=== PATIENT | female | born 1970 | race Two or more races ===

== ENCOUNTER 2017-09-04 06:32 | Emergency (ER) | payer OTHER ==
[~2017-09-04] VITALS: Ht 157.5 cm; Wt 89.0 kg
[~2017-09-04 06:32] MED LIST: HYDR-762 PO; NAPR-685 PO; ONDA4TAB8 PO
[2017-09-04] MEDS ORDERED: KETOROLAC 30 MG INJ IV STA (06:40)
[2017-09-04] MEDS ORDERED: ONDANSETRON 4 MG INJ IV STA (06:40)
[2017-09-04] MEDS ORDERED: SOD CHLORIDE 0.9% 1,000 ML IV STA (06:40)
[2017-09-04 06:43] VITALS: Ht 157.5 cm; Wt 89.0 kg
[2017-09-04 07:25] LABS: BASOPHIL # 0.1 10^3/ul (0.0-0.1); BASOPHILS % 0.7 % (0.0-2.0); EOSINOPHILS # 0.1 10^3/ul (0.0-0.5); EOSINOPHILS % 1.6 % (0.0-7.0); HEMOGLOBIN 12.9 g/dl (12.0-16.0); LYMPHOCYTES # 1.8 10^3/ul (0.8-2.9); LYMPHOCYTES % 25.1 % (15.0-51.0); MEAN CORPUSCULAR HEMOGLOBIN 29.5 pg (29.0-33.0); MEAN CORPUSCULAR HGB CONC 33.1 g/dl (32.0-37.0); MEAN CORPUSCULAR VOLUME 89.2 fl (82.0-101.0); MEAN PLATELET VOLUME 11.2 fl (7.4-10.4); MONOCYTE # 0.5 10^3/ul (0.3-0.9); MONOCYTES % 7.1 % (0.0-11.0); NEUTROPHIL # 4.6 10^3/ul (1.6-7.5); NEUTROPHILS % 65.2 % (39.0-77.0); PLATELET COUNT 188 10^3/UL (140-415); RED BLOOD COUNT 4.37 10^6/ul (4.20-5.40); RED CELL DISTRIBUTION WIDTH 13.6 % (11.5-14.5)
[2017-09-04 07:48] LABS: ALBUMIN 3.7 g/dl (3.3-4.9); ALBUMIN/GLOBULIN RATIO 1.19; BILIRUBIN,INDIRECT 0.2 mg/dl (0-1.1); BILIRUBIN,TOTAL 0.2 mg/dl (0.2-1.3); CREATININE 0.69 mg/dl (0.44-1.00); TOTAL PROTEIN 6.8 g/dl (6.1-8.1)
[2017-09-04] MEDS ORDERED: DIAZEPAM 5 MG/ML SYG IV ONE (08:30)
[2017-09-04 09:18] LABS: ADD UMIC YES; UR ASCORBIC ACID NEGATIVE (NEGATIVE); UR BACTERIA FEW /HPF (NONE SEEN); UR BILIRUBIN (Dip) NEGATIVE (NEGATIVE); UR BLOOD (Dip) NEGATIVE (NEGATIVE); UR CLARITY CLEAR (CLEAR); UR COLOR STRAW (YELLOW); UR GLUCOSE (Dip) NEGATIVE (NEGATIVE); UR KETONES (Dip) TRACE mg/dL (NEGATIVE); UR LEUKOCYTE ESTERASE (Dip) 1+ Leu/ul (NEGATIVE); UR NITRITE (Dip) NEGATIVE (NEGATIVE); UR RBC 0 /HPF (0-5); UR SPECIFIC GRAVITY (Dip) 1.008 (1.003-1.030); UR TOTAL PROTEIN (Dip) NEGATIVE (NEGATIVE); UR UROBILINOGEN (Dip) NEGATIVE (NEGATIVE)
--- NOTE | 2017-09-04 09:27 | ERD ---
ER Documentation Chief Complaint Chief Complaint right flank pain with dizziness and nausea HPI This is a 47-year-old female who presents to the emergency room for evaluation of a right lower back pain. The patient states that she was feeling dizzy today and not called EMS. This patient does state that this back pain is worse when she stands up and when she walks. She does state that she was at the gym 2 days ago however she was worried because of the dizziness and called 911. When EMS arrived this to this patient was hypotensive with a systolic blood pressure of 85. This patient does have a history of low blood pressure, the patient denies any chest pain, shortness of breath, diaphoresis associated with any of her symptoms. She came to the ER for evaluation. ROS All systems reviewed and are negative except as per history of present illness. Medications Home Meds Active Scripts Ondansetron Hcl* (Zofran*) 4 Mg Tablet, 4 MG PO Q8H Y for NAUSEA AND/OR VOMITING , #30 TAB Prov:NICO FRENCH MD 07/18/15 Hydrocodone Bit-Acetaminophen* ([place]*) 10-325 Mg Tablet, 1 TAB PO Q6 Y for PAIN , #10 TAB Prov:NICO FRENCH MD 07/18/15 Naproxen* (Naproxen*) 375 Mg Tablet, 375 MG PO BID Y for PAIN, #14 TAB Prov:SUSIE VILLAFANA DO 07/18/15 Allergies Allergies: Coded Allergies: No Known Allergy (Unverified , 07/18/15) PMhx/Soc Medical and Surgical Hx: pt denies Medical Hx History of Surgery: Yes (APPY TONSILS) Hx Alcohol Use: No Hx Substance Use: No Hx Tobacco Use: No Smoking Status: Never smoker Physical Exam Vitals Vital Signs Date Time Temp Pulse Resp B/P Pulse Ox O2 Delivery O2 Flow Rate FiO2 09/04/17 09:00 67 20 101/62 98 Room Air 09/04/17 06:43 97.9 56 17 101/63 100 Physical Exam INITIAL VITAL SIGNS: Reviewed by me GENERAL: The patient is well developed and appropriate for usual state of health in no apparent distress HEENT: Pupils equal, round, and reactive to light. EOMI. There is no scleral icterus. NECK: C-spine is soft and supple, there is no meningismus. There is no cervical lymphadenopathy. LUNGS: Clear to auscultation bilaterally. There are no rales, wheezes or rhonchi. HEART: Regular rate and rhythm, no murmurs, clicks, rubs or gallops. ABDOMEN: Soft, non-tender, non-distended. There are bowel sounds in all four quadrants. No rebound or guarding. EXTREMITIES: There is no peripheral cyanosis or edema. No focal swelling or erythema. NEUROLOGICAL: The patient moves all four extremities with 5/5 strength. Cranial nerves II - XII are intact. Normal gait. Alert and oriented SKIN: There is no apparent rash or petechiae. Musculoskeletal: Positive straight leg raise at 15 on the right, no CVAT HEME/LYMPHATIC: There is no evidence of excessive bruising or lymphedema. PSYCHIATRIC: The patient does not appear anxious or depressed. Result Diagram: 09/04/1770409/04/17704 Results 24 hrs Laboratory Tests Test 09/04/17 07:05 09/04/17 08:45 White Blood Count 7.010^3/ul Red Blood Count 4.3710^6/ul Hemoglobin 12.9g/dl Hematocrit 39.0% Mean Corpuscular Volume 89.2fl Mean Corpuscular Hemoglobin 29.5pg Mean Corpuscular Hemoglobin Concent 33.1g/dl Red Cell Distribution Width 13.6% Platelet Count 48586^3/UL Mean Platelet Volume 11.2fl Neutrophils % 65.2% Lymphocytes % 25.1% Monocytes % 7.1% Eosinophils % 1.6% Basophils % 0.7% Nucleated Red Blood Cells % 0.0/100WBC Neutrophils # 4.610^3/ul Lymphocytes # 1.810^3/ul Monocytes # 0.510^3/ul Eosinophils # 0.110^3/ul Basophils # 0.110^3/ul Nucleated Red Blood Cells # 0.010^3/ul Sodium Level 141mmol/L Potassium Level 4.0mmol/L Chloride Level 113mmol/L Carbon Dioxide Level 20mmol/L Anion Gap 12 Blood Urea Nitrogen 18mg/dl Creatinine 0.69mg/dl Glucose Level 84mg/dl Calcium Level 8.0mg/dl Total Bilirubin 0.2mg/dl Direct Bilirubin 0.00mg/dl Indirect Bilirubin 0.2mg/dl Aspartate Amino Transf (AST/SGOT) 18IU/L Alanine Aminotransferase (ALT/SGPT) 33IU/L Alkaline Phosphatase 49IU/L Total Protein 6.8g/dl Albumin 3.7g/dl Globulin 3.10g/dl Albumin/Globulin Ratio 1.19 Lipase 46U/L Urine Color STRAW Urine Clarity CLEAR Urine pH 6.0 Urine Specific [place] 1.008 Urine Ketones TRACEmg/dL Urine Nitrite NEGATIVEmg/dL Urine Bilirubin NEGATIVEmg/dL Urine Urobilinogen NEGATIVEmg/dL Urine Leukocyte Esterase 1+[place]/ul Urine Microscopic RBC 0/HPF Urine Microscopic WBC 3/HPF Urine Bacteria FEW/HPF Urine Hemoglobin NEGATIVEmg/dL Urine Glucose NEGATIVEmg/dL Urine Total Protein NEGATIVEmg/dl Current Medications Medications (Trade) Dose Ordered Sig/Sergei Route PRN Reason Start Time Stop Time Status Last Admin Dose Admin Sodium Chloride (NS) 1,000 ml @ 1,000 mls/hr Q1H STAT IV 09/04/17 06:40 09/04/17 07:39 DC 09/04/17 07:00 Ondansetron HCl (Zofran Inj) 4 mg ONCE STAT IV 09/04/17 06:40 09/04/17 06:42 DC 09/04/17 07:00 Ketorolac Tromethamine (Toradol) 30 mg ONCE STAT IV 09/04/17 06:40 09/04/17 06:42 DC 09/04/17 07:00 Diazepam (Valium) 5 mg ONCE ONCE IV 09/04/17 08:30 09/04/17 08:31 DC 09/04/17 08:59 Procedures/MDM X-ray Hip 2V Interpreted by me: Bones: No fracture Joints: No dislocation Foreign body: None This 47-year-old female presents to the ER for evaluation of lower back pain. The patient was hypotensive when EMS arrived however on my examination the patient had a blood pressure of 110/64. She was in no acute distress. Lab work was obtained which does not show any acute lab abnormalities besides hyperchloremia. Urinalysis does reveal 1+ leukocyte esterase. The patient underwent a hip x-ray which does not show any signs of fractures. She was given Toradol and Valium. When I reevaluated her she says she is feeling much better. I do feel this patient likely has a lumbar strain secondary to exercise and gym use. The patient will be discharged home with a prescription for Motrin, and Valium to take at night before she goes to sleep only. Departure Diagnosis: Primary Impression: Acute lumbar myofascial strain Additional Impression: Flank pain Condition: Stable LISETTE MARTIN DO Sep 04, 2017 09:27
[2017-09-04] MEDS ORDERED: DIAZ5TAB4 PO (09:28)
[2017-09-04] MEDS ORDERED: IBUP800T25 PO (09:28)
[2017-09-04 09:37] VITALS: BP 134/69; PULSE 72; RESP 18; TEMP 97.9
--- NOTE | 2017-09-04 15:11 | RADRPT ---
PROCEDURE: XR Right Hip. CLINICAL INDICATION: Right hip pain. TECHNIQUE: Two views. Frontal and lateral. COMPARISON: No prior studies are available for comparison. FINDINGS: There is no fracture or dislocation. The soft tissues are normal. Articular surfaces are intact. There is no lytic or blastic lesion. There is no radiopaque foreign body. IMPRESSION: 1. Normal images of the right hip. RPTAT: QQ .Christopher Alexander MD, MD Date Time Electronically viewed and signed by .Christopher Alexander MD, on 09/04/2017 15:10 .R/
== END 2017-09-04 09:45 | disposition home or self-care (01) ==
LOC: E/R 06:32
DX: S39.012A Strain of muscle, fascia and tendon of lower back, initial encounter (principal); S39.91XA Unspecified injury of abdomen, initial encounter; X58.XXXA Exposure to other specified factors, initial encounter; Y92.9 Unspecified place or not applicable
CPT/HCPCS: 73510; 80053; 81001; 83690; 85025; 96374; 96375; J1885; J2405; J3360; J7030